=== PATIENT | male | born 1995 | race African-American/Black ===

== ENCOUNTER 2017-02-22 08:16 | Emergency (ER) | payer OTHER ==
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
[~2017-02-22 08:16] MED LIST: ANTIBIOTIC MED PO; IBUPROFEN800 MG PO; TYLENOL #3 PO
== END 2017-02-22 09:29 | disposition home or self-care (01) ==
LOC: SED 08:16
DX: S09.90XA Unspecified injury of head, initial encounter (principal); W22.8XXA Striking against or struck by other objects, initial encounter; Y92.410 Unspecified street and highway as the place of occurrence of the external cause
CPT/HCPCS: 70450; 72125; 99284